=== PATIENT | male | born 1995 | race Caucasian/White ===

== ENCOUNTER 2022-11-20 21:40 | Emergency (ER) | payer BC, MEDICAID ==
[~2022-11-20] VITALS: Ht 175.3 cm; Wt 90.7 kg
--- NOTE | 2022-11-20 22:35 | NUR ---
Dr. Diehl at bedside. MSE in progress.
[2022-11-20 23:06] LABS: HEMATOCRIT 42.2 % (36.7-47.1); MEAN CORPUSCULAR HEMOGLOBIN 30.2 uug (23.8-33.4); MEAN CORPUSCULAR VOLUME 87.3 fL (73.0-96.2); PLATELET COUNT (AUTO) 203 K/uL (152-348)
[2022-11-20 23:15] LABS: CREATININE 1.4 mg/dL (0.6-1.3); POTASSIUM 3.9 mmol/L (3.5-5.1)
[2022-11-20 23:20] LABS: BILIRUBIN,TOTAL 0.3 mg/dL (0.2-1.0); TOTAL PROTEIN, SERUM 7.3 g/dL (6.4-8.2)
--- NOTE | 2022-11-21 00:28 | NUR ---
Patient discharged to home in stable condition. A/O x 4. NAD noted. Ambulatory with a steady gait. Written and verbal after care instructions given. Patient verbalizes understanding of instructions. Stressed follow up or return to ER for worsening s/s.
== END 2022-11-21 00:29 | disposition home or self-care (01) ==
LOC: ER 21:43
DX: R06.02 Shortness of breath (principal); Z20.822 Contact with and (suspected) exposure to COVID-19; N17.9 Acute kidney failure, unspecified
CPT/HCPCS: 36415; 71045; 84484; 85025; 93005; A4663